=== PATIENT | female | born 1980 | race Caucasian/White ===

== ENCOUNTER 2020-12-19 01:59 | Emergency (ER) | payer OTHER ==
[~2020-12-19 01:59] MED LIST: ADMELOG100 UNIT/1 SC; BASAGLAR K100 UNIT/1 SC; ECOTRIN81 MG PO; GLUCOPHAGE1000 MG PO; METFORMIN HCL1000 M1 PO; NAPROSYN500 MG PO; NOVOLIN N100 UNIT/1 SQ; NOVOLIN R100 UNIT/1 INJ; PHILLIPS500 MG PO; PRENATABS RX T1 EACH PO; PRENATAL VITAM1 EAC6 PO; VITAMIN D350000 UNIT PO; ZANTAC150 MG PO
[2020-12-19 05:44] LABS: HEMOGLOBIN 16.4 gm/dl (12.3-15.3); RED BLOOD COUNT 5.34 M/UL (4.00-5.10); WHITE BLOOD COUNT 10.7 K/UL (4.5-11.0)
[2020-12-19 06:05] LABS: BUN/CREATININE RATIO 25 (0-10)
[2020-12-19] MEDS ORDERED: IMODIUM CAP 2 MG2 MG PO (09:00)
[2020-12-19] MEDS ORDERED: ONDANSETRON ODT4 MG SL (09:00)
[2020-12-19] MEDS ORDERED: TORADOL 10 MG T10 MG PO (09:00)
== END 2020-12-19 09:10 | disposition home or self-care (01) ==
LOC: ER1 01:59
PROVIDERS: Physician Assistant
DX: R10.31 Right lower quadrant pain (principal); E11.9 Type 2 diabetes mellitus without complications; F17.210 Nicotine dependence, cigarettes, uncomplicated
CPT/HCPCS: 80053; 81001; 83690; 84703; 85025; 87086; 99284; Q9967

== ENCOUNTER 2021-03-06 17:13 | Emergency (ER) | payer OTHER ==
[~2021-03-06 17:13] MED LIST changes: +IMODIUM CAP 2 MG2 MG PO; +ONDANSETRON ODT4 MG SL; +TORADOL 10 MG T10 MG PO
[2021-03-06 20:06] LABS: HEMOGLOBIN 15.4 gm/dl (12.3-15.3); RED BLOOD COUNT 5.09 M/UL (4.00-5.10); WHITE BLOOD COUNT 4.8 K/UL (4.5-11.0)
[2021-03-06 20:31] LABS: BUN/CREATININE RATIO 14 (0-10)
== END 2021-03-06 21:13 | disposition home or self-care (01) ==
LOC: ER1 17:13
PROVIDERS: Physician Assistant
DX: U07.1 COVID-19 (principal); E11.9 Type 2 diabetes mellitus without complications; R00.0 Tachycardia, unspecified
CPT/HCPCS: 0240U; 71045; 80048; 82550; 82553; 83874; 84484; 85025; 85379; 94760; 99284

== ENCOUNTER 2021-03-11 17:56 | Inpatient (IN) | payer OTHER ==
[~2021-03-11] VITALS: Ht 172.7 cm; Wt 83.7 kg
[2021-03-11 18:43] LABS: HEMOGLOBIN 15.5 gm/dl (12.3-15.3); RED BLOOD COUNT 5.17 M/UL (4.00-5.10); WHITE BLOOD COUNT 5.9 K/UL (4.5-11.0)
[2021-03-11 19:11] LABS: BUN/CREATININE RATIO 16 (0-10)
[2021-03-12 04:02] LABS: HEMOGLOBIN 14.1 gm/dl (12.3-15.3); RED BLOOD COUNT 4.74 M/UL (4.00-5.10); WHITE BLOOD COUNT 5.4 K/UL (4.5-11.0)
[2021-03-12 04:37] LABS: BUN/CREATININE RATIO 12 (0-10)
[2021-03-12 10:00] LABS: BUN/CREATININE RATIO 15 (0-10)
[2021-03-12 13:29] LABS: BUN/CREATININE RATIO 13 (0-10)
[2021-03-12 18:32] LABS: BUN/CREATININE RATIO 14 (0-10)
[2021-03-13 03:18] LABS: HEMOGLOBIN 13.8 gm/dl (12.3-15.3); RED BLOOD COUNT 4.65 M/UL (4.00-5.10); WHITE BLOOD COUNT 5.2 K/UL (4.5-11.0)
[2021-03-13 03:54] LABS: BUN/CREATININE RATIO 11 (0-10)
[2021-03-13 11:24] LABS: BUN/CREATININE RATIO 12 (0-10)
[2021-03-13] MEDS ORDERED: FERROUS SULFAT325 M2 PO (17:24)
[2021-03-13] MEDS ORDERED: LANTUS INS100 UTS/M1 SQ (17:24)
[2021-03-13 19:14] LABS: BUN/CREATININE RATIO 14 (0-10)
[2021-03-14 03:29] LABS: HEMOGLOBIN 12.2 gm/dl (12.3-15.3); RED BLOOD COUNT 4.23 M/UL (4.00-5.10); WHITE BLOOD COUNT 4.9 K/UL (4.5-11.0)
[2021-03-14 03:45] LABS: BUN/CREATININE RATIO 17 (0-10)
[2021-03-15 05:13] LABS: HEMOGLOBIN 12.6 gm/dl (12.3-15.3); RED BLOOD COUNT 4.42 M/UL (4.00-5.10); WHITE BLOOD COUNT 3.7 K/UL (4.5-11.0)
[2021-03-15 05:47] LABS: BUN/CREATININE RATIO 23 (0-10)
[2021-03-16 04:51] LABS: HEMOGLOBIN 12.3 gm/dl (12.3-15.3); RED BLOOD COUNT 4.31 M/UL (4.00-5.10)
[2021-03-16 04:57] LABS: WHITE BLOOD COUNT 5.6 K/UL (4.5-11.0)
[2021-03-16 05:29] LABS: BUN/CREATININE RATIO 24 (0-10)
[2021-03-17 04:01] LABS: HEMOGLOBIN 12.5 gm/dl (12.3-15.3); RED BLOOD COUNT 4.3 M/UL (4.00-5.10)
[2021-03-17 04:04] LABS: WHITE BLOOD COUNT 7.4 K/UL (4.5-11.0)
[2021-03-17 04:17] LABS: BUN/CREATININE RATIO 27 (0-10)
[2021-03-17] MEDS ORDERED: BENZONATATE100 MG PO (08:51)
[2021-03-17] MEDS ORDERED: BUDESONIDE0.25 MG/2 NEB (08:51)
[2021-03-17] MEDS ORDERED: ELIQUIS 2.5 MG2.5 MG PO (08:51)
[2021-03-17] MEDS ORDERED: DEXAMETHASONE2 MG PO (08:59)
[2021-03-17] MEDS ORDERED: INSULIN AS100 UNIT/3 SQ (08:59)
[2021-03-17] MEDS ORDERED: LANTUS SOL100 UNIT/1 SQ (08:59)
[2021-03-17] MEDS ORDERED: AEROECLIPSE II1 EACH INH (09:16)
[2021-03-17] MEDS ORDERED: IPRAT-ALBUT 0.5-3 ML INH (09:16)
--- NOTE | 2021-03-17 09:20 | NUR ---
ROOM AIR OXYGEN SATURATION IS 87%.
== END 2021-03-17 12:00 | disposition home or self-care (01) | DRG 177 ==
LOC: ER1 17:56 → CDU 20:30 → PROG CARE 20:30
PROVIDERS: Emergency Medicine; Internal Medicine; Preventive Medicine Occupational Medicine; ADMIT Internal Medicine
PROC: 8E0ZXY6 Isolation (ICD-10-PCS; principal; 2021-03-12)
PROC: XW033E5 Introduction of Remdesivir Anti-infective into Peripheral Vein, Percutaneous Approach, New Technology Group 5 (ICD-10-PCS; 2021-03-12)
PROC: 3E0333Z Introduction of Anti-inflammatory into Peripheral Vein, Percutaneous Approach (ICD-10-PCS; 2021-03-12)
PROC: XW033H5 Introduction of Tocilizumab into Peripheral Vein, Percutaneous Approach, New Technology Group 5 (ICD-10-PCS; 2021-03-14)
PROC: 5A0945A Assistance with Respiratory Ventilation, 24-96 Consecutive Hours, High Flow/Velocity Cannula (ICD-10-PCS; 2021-03-16)
DX: U07.1 COVID-19 (principal); E11.10 Type 2 diabetes mellitus with ketoacidosis without coma; J12.82 Pneumonia due to coronavirus disease 2019; J80 Acute respiratory distress syndrome; J15.9 Unspecified bacterial pneumonia; E87.1 Hypo-osmolality and hyponatremia; F41.9 Anxiety disorder, unspecified; E87.6 Hypokalemia; E78.5 Hyperlipidemia, unspecified; E83.39 Other disorders of phosphorus metabolism; D50.9 Iron deficiency anemia, unspecified; Z98.890 Other specified postprocedural states; Z83.3 Family history of diabetes mellitus; Z79.4 Long term (current) use of insulin; Z87.891 Personal history of nicotine dependence; Z79.899 Other long term (current) drug therapy; Z82.49 Family history of ischemic heart disease and other diseases of the circulatory system; Z23 Encounter for immunization
CPT/HCPCS: 36415; 36600; 71045; 80048; 80053; 80061; 80202; 82009; 82550; 82553; 82728; 82803; 82962; 83036; 83540; 83550; 83605; 83690; 83735; 83874; 83880; 84100; 84132; 84484; 85025; 85027; 85379; 85652; 86140; 87040; 87081; 93005; 94640; 94660; 94664; 94760; 96374; 96375; 99285; J0456; J0692; J0696; J1100; J1650; J2270; J3370; J3475; J3480; J7030; J7070; Q0177; Q0249; Q9967; U0002

== ENCOUNTER → 2021-04-15 | Outpatient (CLI) | payer OTHER ==
[~2021-04-15] MED LIST changes: +AEROECLIPSE II1 EACH INH; +BENZONATATE100 MG PO; +BUDESONIDE0.25 MG/2 NEB; +DEXAMETHASONE2 MG PO; +ELIQUIS 2.5 MG2.5 MG PO; +FERROUS SULFAT325 M2 PO; +INSULIN AS100 UNIT/3 SQ; +IPRAT-ALBUT 0.5-3 ML INH; +LANTUS INS100 UTS/M1 SQ; +LANTUS SOL100 UNIT/1 SQ
== END ==
LOC: EXRD 04-14 16:00
DX: E04.1 Nontoxic single thyroid nodule (principal)
CPT/HCPCS: 76536

== ENCOUNTER → 2021-04-21 | Outpatient (CLI) | payer OTHER | LOC: EXRD 15:04 | DX: Z20.822 Contact with and (suspected) exposure to COVID-19 (principal) | CPT/HCPCS: 71046 ==

== ENCOUNTER → 2021-05-25 | Outpatient (CLI) | payer OTHER | LOC: HEART 5 12:54 | DX: R00.0 Tachycardia, unspecified (principal) ==

== ENCOUNTER → 2021-07-19 | Outpatient (CLI) | payer OTHER | LOC: EXRD 14:46 | DX: U09.9 Post COVID-19 condition, unspecified (principal) | CPT/HCPCS: 71046 ==